=== PATIENT | male | born 1975 | race Caucasian/White ===

== ENCOUNTER 2017-01-24 07:57 | Day surgery (SDC) | payer BC ==
[~2017-01-24 07:57] MED LIST: Lactated Ringers 1,000 ML IV SCH; Lidocaine 1%/Sod Bicarbonate in NS 8.4% 1 ML Syringe PRN; Sodium Chloride 0.9% 10 ML Syringe FLUSH PRN
[2017-01-24] MEDS ORDERED: Lidocaine 1% 30 ML SDV ONE ×2 (08:10→08:47)
[2017-01-24] MEDS ORDERED: Bupivacaine 0.5% 30 ML SDV ONE (08:10)
[2017-01-24] MEDS ORDERED: Bupivacaine 0.25% 30 ML SDV ONE ×2 (08:21→08:47)
--- NOTE | 2017-01-24 08:59 | PCM.PREANE ---
Preanesthetic Assessment - Procedure Proposed Procedure: Left index finger I&D and foreign body removal - Anesthesia/Transfusion/Family Hx Anesthesia History: Prior Anesthesia Without Reaction Family History of Anesthesia Reaction: No Transfusion History: No Prior Transfusion(s) - Review of Systems General: No Symptoms Pulmonary: No Symptoms Cardiovascular: No Symptoms Gastrointestinal: No Symptoms Neurological: No Symptoms Other: Reports: Anxiety - Physical Assessment NPO Status Date: 01/23/17 NPO Status Time: 21:00 O2 Sat by Pulse Oximetry: 100 Respiratory Rate: 16 Vital Signs: Last Vital Signs Temp 36.8 C 01/24/17 08:00 Pulse 52 L 01/24/17 08:00 Resp 16 01/24/17 08:00 BP 133/60 01/24/17 08:00 Pulse Ox 100 01/24/17 08:00 Height: 1.88 m Weight: 95.708 kg ASA Class: 2 Mental Status: Alert & Oriented x3 Airway Class: Mallampati = 2 Dentition: Reports: Normal Dentition Thyro-Mental Finger Breadths: 3 Mouth Opening Finger Breadths: 3 ROM/Head Extension: Full Lungs: Clear to Auscultation, Normal Respiratory Effort Cardiovascular: Regular Rate, Regular Rhythm - Allergies Allergies/Adverse Reactions: Allergies Allergy/AdvReac Type Severity Reaction Status Date / Time No Known Allergies Allergy Verified 01/23/17 14:59 - Blood Blood Available: No Product(s) Available: None - Anesthesia Plan Pre-Op Medication Ordered: None - Acknowledgements Anesthesia Type Planned: MAC (lacal per surgeon ) Pt an Appropriate Candidate for the Planned Anesthesia: Yes Alternatives and Risks of Anesthesia Discussed w Pt/Guardian: Yes Pt/Guardian Understands and Agrees with Anesthesia Plan: Yes PreAnesthesia Questionnaire HEENT History: Reports: Other (See Below) Other HEENT History: pharyngitis Cardiovascular History: Reports: None Respiratory History: Reports: Asthma Gastrointestinal History: Reports: Other (See Below) Other Gastrointestinal History: colitis Genitourinary History: Reports: None FAMILY SUPPORT COORDINATOR History: Reports: None Musculoskeletal History: Reports: Other (See Below) Other Musculoskeletal History: L heel injury, L index finger injury, L foreign body index finger Neurological History: Reports: None Psychiatric History: Reports: Anxiety Endocrine/Metabolic History: Reports: None Hematologic History: Reports: None Immunologic History: Reports: None Oncologic (Cancer) History: Reports: None Dermatologic History: Reports: None - Past Surgical History Head Surgeries/Procedures: Reports: None GI Surgical History: Reports: Appendectomy Neurological Surgical History: Reports: None Dermatological Surgical History: Reports: None - SUBSTANCE USE Smoking Status *Q: Former Smoker Second Hand Smoke Exposure: No Recreational Drug Use History: No - HOME MEDS Home Medications: Home Meds Albuterol [Ventolin HFA] 2 puff INH QID PRN 01/23/17 [History] Ibuprofen 200 - 600 mg PO TID PRN 01/23/17 [History] Naproxen Sodium [Aleve] 220 mg PO BID PRN 01/23/17 [History] Varenicline Tartrate [Chantix] 1 tab PO ASDIRECTED 01/23/17 [History] Acetaminophen/HYDROcodone [[place] 325-5 MG] 1 - 2 tab PO Q6H PRN #15 tablet 01/24 [Rx] - CURRENT (IN HOUSE) MEDS Current Meds: Current Medications Lactated Ringer's (Ringers, Lactated) 1,000 mls @ 125 mls/hr IV ASDIRECTED MAY Stop: 01/24/17 23:00 Last Admin: 01/24/17 08:20 Dose: 125 mls/hr Lidocaine/Sodium Bicarbonate (Buffered Lidocaine 1% In Ns 8.4%) 0.25 ml .XX ONETIME PRN PRN Reason: Prior to IV Start Stop: 01/24/17 18:00 Last Admin: 01/24/17 08:19 Dose: 0.25 ml Sodium Chloride (Saline Flush) 10 ml FLUSH ASDIRECTED PRN PRN Reason: Keep Vein Open Stop: 01/24/17 18:00 Discontinued Medications Bupivacaine HCl (Marcaine 0.5%) Confirm Administered Dose 30 ml .ROUTE .STK-MED ONE Stop: 01/24/17 08:11 Bupivacaine HCl (Marcaine 0.25%) Confirm Administered Dose 30 ml .ROUTE .STK- MED ONE Stop: 01/24/17 08:22 Lidocaine HCl (Xylocaine-Mpf 1%) Confirm Administered Dose 30 ml .ROUTE .STK- MED ONE Stop: 01/24/17 08:11
[2017-01-24] MEDS ORDERED: Propofol 200 MG/20 ML SDV ONE ×3 (09:26→10:19)
[2017-01-24] MEDS ORDERED: Midazolam 1 MG/ML 2 ML SDV ONE (09:26)
[2017-01-24] MEDS ORDERED: fentaNYL 100 MCG/2 ML SDV ONE (09:26)
[2017-01-24] MEDS ORDERED: ceFAZolin 1 GM Vial ONE (09:29)
--- NOTE | 2017-01-24 10:42 | PCM48HPAN ---
Post Anesthesia Note - EVALUATION WITHIN 48HRS OF ANESTHETIC Vital Signs in Normal Range: Yes Patient Participated in Evaluation: Yes Respiratory Function Stable: Yes Airway Patent: Yes Cardiovascular Function Stable: Yes Hydration Status Stable: Yes Pain Control Satisfactory: Yes Nausea and Vomiting Control Satisfactory: Yes Mental Status Recovered: Yes
[2017-01-24 10:46] VITALS: BP 107/61
--- NOTE | 2017-01-24 11:27 | CR ---
Left second finger: Multiple fluoroscopic spot views were obtained of the left second finger. Study obtained utilizing C-arm device. Study shows a linear foreign body at the PIP joint level. Final films shows this foreign body to disappear presumably having been removed. Impression: 1. Findings as noted above. Diagnostic code #2
--- NOTE | 2017-02-04 22:13 | PCM.OPNOTE ---
- General Post-Op/Procedure Note Date of Surgery/Procedure: 01/24/17 Operative Procedure(s): foreign body removal with irrigation of left index finger Pre Op Diagnosis: foreign body left index finger distal phalanx Post-Op Diagnosis: Same Anesthesia Technique: MAC, Regional Block Primary Surgeon: Wong Collazo Anesthesia Provider: Damon Malloy Captain/Check Airman: Haley Brown in mLs: 5 Complications: None Condition: Good
--- NOTE | 2017-02-04 23:04 | OR ---
DATE OF OPERATION: 01/24/2017 SURGEON: Wong Collazo MD OPERATION PERFORMED: Foreign body removal with irrigation of left index finger. PREOPERATIVE DIAGNOSIS: Foreign body, left index finger, distal phalanx. POSTOPERATIVE DIAGNOSIS: Foreign body, left index finger, distal phalanx. ANESTHESIA: MAC regional block. ANESTHESIA PROVIDER: Damon Malloy. METAL MOVER: Haley Brown PA-C. ESTIMATED BLOOD LOSS: 5 mL. COMPLICATIONS: None. CONDITION: Stable. DESCRIPTION OF PROCEDURE: The patient was identified in the preop holding area. Proper site was marked and identified by the surgeon. The patient was taken back to the operating theater where after adequate anesthesia, the patient's left upper extremity was sterilely prepped and draped in the usual sterile fashion. OR time-out was performed. The patient received 2 g IV Ancef. At this time, an Esmarch was used on the forearm for a tourniquet and a digital block was then performed of the left index finger. A dorsolateral incision was then made on the radial side of the distal phalanx, blunt dissection was taken down to the area of the distal phalanx where the foreign body was believed to be. At this time, the dissection was done to the deep layers near the distal phalanx and the DIP joint. An arthrotomy was not made. Using C-arm fluoroscopy and direct visualization, two small pieces of the fin of a fish were identified and removed and placed on the back table. At this time, 3 L of normal saline was irrigated through the wound and 4-0 nylon simple suture was used for closure of the skin. The patient had a sterile soft dressing applied and then was sent to PACU in stable condition. MMODAL /[id number]
== END 2017-01-24 11:05 | disposition home or self-care (01) ==
LOC: JD.SDS 07:57
PROVIDERS: ATTEND Orthopaedic Surgery
DX: S60.451A Superficial foreign body of left index finger, initial encounter (principal); Z72.0 Tobacco use; W45.8XXA Other foreign body or object entering through skin, initial encounter
CPT/HCPCS: 20520; 76000; 87641; J0690; J2250; J3010; J7120; 00400; J2704; J3490

== ENCOUNTER 2024-04-10 13:01 | Emergency (ER) | payer BC ==
[2024-04-10 13:14] VITALS: BP 144/92; PULSE 85
[2024-04-10 13:47] LABS: BASOPHILS PERCENT AUTO 0.6 % (0.0-1.0); EOSINOPHILS ABSOLUTE AUTO 0.4 K/mm3 (0.0-0.4); EOSINOPHILS PERCENT AUTO 5.6 % (0.0-6.0); HEMATOCRIT 46.1 % (42.0-52.0); HEMOGLOBIN 15.8 gm/dl (14.0-18.0); IMMATURE GRAN ABSOLUTE AUTO 0.02 K/mm3 (0.00-0.05); IMMATURE GRAN PERCENT AUTO 0.3 % (0.0-0.4); LYMPHOCYTES ABSOLUTE AUTO 1.5 K/mm3 (1.0-4.8); LYMPHOCYTES PERCENT AUTO 21.7 % (24.0-44.0); MEAN CORPUSCULAR HEMOGLOBIN 31.5 pg (28.0-32.0); MEAN CORPUSCULAR HGB CONC 34.3 g/dl (32.0-36.0); MEAN CORPUSCULAR VOLUME 91.8 fl (83.0-99.0); MEAN PLATELET VOLUME 9.6 fl (9.4-12.4); MONOCYTES ABSOLUTE AUTO 0.6 K/mm3 (0.0-0.8); NEUTROPHILS ABSOLUTE AUTO 4.4 K/mm3 (1.8-7.7); NEUTROPHILS PERCENT AUTO 62.8 % (41.0-71.0); PLATELET COUNT,PLT 210 K/mm3 (150-400); RED BLOOD CELL COUNT 5.02 M/mm3 (4.52-5.90); WHITE BLOOD CELL COUNT,WBC 7.01 K/mm3 (3.9-11.3)
[2024-04-10] MEDS ORDERED: Sodium Chloride 0.9% 10 ML Syringe FLUSH PRN (13:48)
[2024-04-10 14:02] LABS: A/G RATIO 1.1 (1-2); ANION GAP 12.7 (5-15); BILIRUBIN TOTAL 0.4 mg/dL (0.2-1.0); BUN/CREATININE RATIO 13.3 (14-18); CALCIUM 9.3 mg/dL (8.5-10.1); CREATININE 0.9 mg/dL (0.7-1.3); EST CRCL DRUG DOSING (CG) 119.24 mL/min; POTASSIUM,K 3.7 mEq/L (3.5-5.1); PROTEIN TOTAL,TP 7.8 g/dl (6.4-8.2)
[2024-04-10] MEDS: Famotidine 20 MG Tab PO ONE (14:13)
[2024-04-10] MEDS: Aspirin 81 MG Tab.Chew PO ONE (14:13)
[2024-04-10] MEDS: Alum Hydrox/Mag Hydrox/Simeth 30 ML, Lidocaine 2% 15 ML PO ONE (14:14)
== END 2024-04-10 17:55 | disposition home or self-care (01) ==
LOC: JD.ED 13:01
DX: R07.9 Chest pain, unspecified (principal); J45.909 Unspecified asthma, uncomplicated; F17.210 Nicotine dependence, cigarettes, uncomplicated; Z86.16 Personal history of COVID-19
CPT/HCPCS: 36415; 71045; 71045-26; 80053; 83690; 84484; 85025; 93005; 99285; A9270-GY